=== PATIENT | male | born 1990 | race Caucasian/White ===

== ENCOUNTER 2017-12-08 08:01 | Day surgery (SDC) | payer OTHER ==
[~2017-12-08 08:01] MED LIST: Buffered Lidocaine 0.9% SYRIN* 5 ML/SYR SYRINGE INTRADERM ONE
[2017-12-08] MEDS ORDERED: ROPIVACAINE 5 MG/ML 30 ML BTL (0.5%) ONE (09:15)
[2017-12-08] MEDS ORDERED: Propofol* 10 MG/ML 20 ML BTL IV PUSH ONE (09:29)
[2017-12-08] MEDS ORDERED: Lidocaine 2% PF * 5 ML VIAL ONE (09:29)
[2017-12-08] MEDS ORDERED: Naloxone* 0.4 MG/ML 1 ML VIAL IV PRN (11:05)
[2017-12-08 11:38] VITALS: BP 120/75
--- NOTE | 2017-12-09 01:08 | OP ---
DATE OF OPERATION: 12/08/17 [facility] DATE OF : 88. SURGEON: Juma Hernandez MD. [employer]ATE[employer] CONSULTANT: HENRY Zambrano. ANESTHESIOLOGIST: Dr. Yanes. ANESTHESIA: Local MAC. PRE-OP DIAGNOSIS: Right carpal tunnel syndrome. POST-OP DIAGNOSIS: Right carpal tunnel syndrome. OPERATIVE PROCEDURE: Right open carpal tunnel release. INDICATIONS: Basim has pretty significant right carpal tunnel syndrome. We had talked about risks and benefits. He understands the risk of persistent symptoms despite doing surgery. He wants to proceed. ESTIMATED BLOOD LOSS: 2 mL. COMPLICATIONS: None. FINDINGS: See above and below. DESCRIPTION OF PROCEDURE: Basim was seen in the preoperative holding area. The correct side, site, and procedure were identified. We came back to the operating room and the arm was prepped and draped in the usual fashion. A time-out was performed. I had infiltrated the operative area with 0.5% ropivacaine prior to draping out the arm. The arm was exsanguinated with the Esmarch and the tourniquet was inflated to 250 mmHg. A 2- to 3-cm incision was made longitudinally in the proximal palm. Dissection was carried down through the subcutaneous tissue and palmar fascia. The fascia was released proximally and distally with the tenotomy scissors. I then used the 15-blade to release the transverse carpal ligament just off the radial aspect of the hook of the hamate. The release was completed proximal under direct visualization with the tenotomy scissors. Once the release was completed and there was no compression on the nerve, the wound was irrigated out , the skin was closed with 4-0 nylon suture. A soft dressing was applied. He was then taken to the recovery room in stable condition. [id number] #: [id number] MTDD
== END 2017-12-08 11:40 | disposition home or self-care (01) ==
LOC: OREAST 08:01
PROVIDERS: ATTEND Orthopaedic Surgery Hand Surgery
DX: G56.01 Carpal tunnel syndrome, right upper limb (principal); Z72.0 Tobacco use; I10 Essential (primary) hypertension; E78.5 Hyperlipidemia, unspecified; R01.1 Cardiac murmur, unspecified; Z68.41 Body mass index [BMI] 40.0-44.9, adult; J45.909 Unspecified asthma, uncomplicated; F98.8 Other specified behavioral and emotional disorders with onset usually occurring in childhood and adolescence; F41.9 Anxiety disorder, unspecified
CPT/HCPCS: J2704; J2795